=== PATIENT | male | born 1970 | race Caucasian/White ===

== ENCOUNTER → 2019-12-19 16:08 | Outpatient (CLI) | payer OTHER, SELFPAY ==
--- NOTE | 2019-12-19 16:45 | MRI_ITS ---
STUDY: MRI RIGHT ANKLE WITHOUT CONTRAST REASON FOR EXAM: Male, 49 years old. RIGHT calcaneal stress fx, RIGHT plantar fascitis, right posterior foot/heel pain x 1 year TECHNIQUE: Standardized fat and water weighted pulse sequences were obtained in all 3 orthogonal planes. COMPARISON: None. FINDINGS: Medial soft tissue swelling. MMild posterior tibialis tendinosis with peritendinitis. NNormal flexor digitorum longus tendon. NNormal flexor hallucis longus tendon. NNormal peroneus longus and brevis tendons. NNormal tibialis anterior tendon. NNormal extensor hallucis longus tendon. NNormal extensor digitorum longus tendons. Small Achilles tendon enthesophyte. Moderate thickening of the plantar fascia with mild acute edema and small plantar spur (sagittal images 9 and 10 series 9).. NNormal intrinsic muscles of the rearfoot. NNormal distal tibiofibular syndesmotic ligamentous complex. NNormal lateral ligamentous complex. NNormal subtalar ligaments and sinus tarsi. NNormal deltoid ligamentous complexes. NNormal plantar calcaneonavicular (spring) ligament. SSmall medial talar dome cyst/osteochondral lesion (coronal image 18 series 7). Tibiotalar articular cartilage preserved. NNormal subtalar articulations. NNormal talonavicular articulation. NNormal calcaneocuboid articulation. NNormal navicular-cuneiform articulations. MRI/Lower Ext Joint Only (Routine) IMPRESSION: Mild acute plantar fasciitis with small plantar spur and moderate plantar fascial thickening Mild PTT tendinosis/tenosynovitis Small Achilles tendon enthesophyte Small medial talar dome cyst/osteochondral lesion Medial soft tissue swelling Electronically Signed: Mulugeta Dhillon DO at 8:57 EST Tel , Service support ,
--- NOTE | 2019-12-19 17:30 | MRI_ITS ---
STUDY: MRI LEFT MIDFOOT/FOREFOOT REASON FOR EXAM: Male, 49 years old. LEFT foot capsulitis,LEFT DISTAL foot pain TECHNIQUE: Standardized fat and water weighted pulse sequences were obtained in all 3 orthogonal planes. COMPARISON: Correlation with left ankle MRI from the same day. FINDINGS: Please see dedicated ankle MRI. First through fifth metatarsals intact. Minimal metatarsophalangeal joint arthrosis. Visualized portions of the first through fifth digits intact. No acute fracture line. No acute dislocation. No acute bone destruction. Normal talonavicular articulation. Normal calcaneocuboid articulation. Normal navicular cuneiform articulations. Partially visualized medial talar dome osteochondral lesion (sagittal image 8 series 5). Normal muscles of the midfoot/hindfoot. No solid, cystic or lipomatous lesions. No significant muscle atrophy. Normal flexor and extensor tendons. Normal Lisfranc ligament. No significant capsular thickening or swelling. MRI/Lower Ext/No Jt/w/o IMPRESSION: Left midfoot/forefoot intact Minimal MTP joint arthrosis Medial talar dome osteochondral lesion Please see dedicated ankle MRI Electronically Signed: Mulugeta Dhillon DO at 10:11 EST Tel , Service support ,
== END ==
PROVIDERS: PCP Internal Medicine; Referring Provider Podiatrist; Visit Provider Podiatrist
DX: M72.2 Plantar fascial fibromatosis (principal); M79.671 Pain in right foot; S92.001S Unspecified fracture of right calcaneus, sequela
CPT/HCPCS: 73718; 73721

== ENCOUNTER → 2021-04-15 14:14 | Outpatient (CLI) | payer OTHER, SELFPAY ==
--- NOTE | 2021-04-15 14:17 | CT_ITS ---
STUDY: CT FACIAL BONES WITHOUT CONTRAST REASON FOR EXAM: Male, 50 years old. CHRONIC SINUSITIS NOT IMPROVING W/ABX RADIATION DOSAGE (If Supplied By Facility): CTDIvol = ( 33.06 ) mGy, DLP = ( 904.09 ) mGycm TECHNIQUE: The patient was scanned in a multi detector CT scanner. Sagittal and coronal images were reconstructed. Individualized dose optimization techniques were used for this CT. COMPARISON: None. FINDINGS: Normal soft tissue structures. Normal orbital fragoso and orbital contents. Normal nasal bones and anterior nasal spine. Normal facial bones. There is no demonstrated fracture. There is a 1.6 cm mucosal polyp or retention cyst at the base of the left maxillary sinus along its medial wall. Normal thickening along the medial posterior wall of the right maxillary sinus. CT/Sinus/Facial Bone IMPRESSION: Mild degree of mucosal thickening of the maxillary sinuses bilaterally slightly more prominent on the left side. Electronically Signed: Norm Knox MD at 14:48 EDT , Service support ,
== END ==
PROVIDERS: PCP Family Medicine; Referring Provider Family Medicine; Visit Provider Family Medicine
DX: J32.9 Chronic sinusitis, unspecified (principal)
CPT/HCPCS: 70486

== ENCOUNTER 2021-07-23 08:38 | Day surgery (SDC) | payer OTHER, SELFPAY ==
--- NOTE | 2021-07-22 12:51 | EKG12_ITS ---
Test Reason : PREOP Blood Pressure : / mmHG Vent. Rate : 061 BPM Atrial Rate : 061 BPM P-R Int : 130 ms QRS Dur : 082 ms QT Int : 396 ms P-R-T Axes : 019 006 030 degrees QTc Int : 398 ms Normal sinus rhythm Normal ECG Confirmed by LASHAUN TREADWELL, MELVA ([id number]), editor trade journal RAFAEL MONTOYA ([id number]) on 07/26/2021 12:58:29 PM Referred By: Mulugeta Blackwood Confirmed By:MELVA WILKS MD
[2021-07-22 13:05] LABS: Hematocrit 43.3 % (40-54); Hemoglobin 14.5 g/dL (13.0-16.5); Mean Corp Hgb Conc 33.5 g/dL (32-36); Mean Corpuscular Hgb 32.4 pg (27.0-32.0); Mean Corpuscular Volume 96.7 fL (80-94); Mean Platelet Vol. 9.4 fl (6.2-12.0); Platelet Count 177 K/mm3 (150-450); RBC Distribution Width CV 12.2 % (11.6-14.6); RBC Distribution Width SD 43.2 fl (35.1-43.9); Red Blood Count 4.48 M/mm3 (4.6-6.2); White Blood Count 4.8 K/mm3 (4.4-11.0)
[2021-07-22 13:26] LABS: Anion Gap 4 (5-15); BUN 12 mg/dL (7-18); BUN/Creat Ratio 13.6 RATIO (10-20); Calcium,Total 8.7 mg/dL (8.5-10.1); Chloride 105 mmol/L (98-107); Creatinine, Serum 0.88 mg/dL (0.70-1.30); EST Glomerular Filtration Rate 97 mL/min (>60); Est Glom Filt Rate - Afr Amer 117 mL/min (>60); Glucose 118 mg/dL (74-106); Potassium 4.5 mmol/L (3.5-5.1); Sodium Level 139 mmol/L (136-145)
[2021-07-23] VITALS (7 sets, daily range): BP systolic 135–147; BP diastolic 83–90; PULSE 57–72; RESP 16; TEMP 35.8–36.8; O2SAT 95–98; BMI 42.3
[2021-07-23] MEDS: Lactated Ringers 1,000 ML 100 ML IV (09:27)
--- NOTE | 2021-07-23 10:30 | NASAL_PTH ---
PATIENT: JERMAIN MILLER LOC: [facility] [place] U[place][id number] AGE/SX: 51/M ROOM: RE07/23/[address]: Dr. Mulugeta Blackwood MD : 1970 BED: DIS: 07/23/2021 SPEC #: [id number] RECD: 07/23/21 14:48 STATUS: JAUN REQ #: [id number] ORESTES: 07/23/21 10:[address]: Mulugeta Blackwood DEPT: SURGICAL PATHOLOGY RECD BY: Divya Call ENTERED: 07/26/21 09:05 SP TYPE: NASAL SPEC OTHR DR: Dr. Moe Johnson DO Tissues: A - Nasal septum, NOS B - Nasal turbinate, NOS Procedures: Decalcification bone/plaque Surgery Specimen Level III HEADER OPERATION: Septoplasty, bilateral submucous resection of inferior turbinates PRE-OP DIAGNOSIS: Inferior turbinate hypertrophy; nasal septal deviation TISSUE SUBMITTED: A ? Nasal contents, B - Turbinates MICROSCOPIC DIAGNOSIS A. Nasal contents, excision: Hyaline cartilage and bone with focal reparative and reactive change. B. Turbinates, resection: Fibrous tissue with benign respiratory glandular tissue. AM:shruthi 07/29/2021 MICROSCOPIC DESCRIPTION Slides are reviewed. GROSS DESCRIPTION A - Received in fixative is one container labeled with the patient's name and designated nasal contents. The specimen consists of multiple irregular fragments of light soni-white bone and cartilage that in aggregate measure 6 x 3 x 0.2 cm. The specimen is totally submitted in two cassettes after decalcification. B - Received in fixative is one container labeled with the patient's name and designated turbinates. The specimen consists of multiple irregular fragments of light soni soft tissue that in aggregate measure 2 x 0.7 x 0.1 cm. The specimen is totally submitted in one cassette. / AM:shruthi 07/26/21 TC:5 CPT: 01492 x2, 49347
[2021-07-23] MEDS: Oxymetazoline 0.05% 1 SPRAY SPRAY.BTL 15 SPRAY (11:14)
[2021-07-23] MEDS: Lidocaine 1% /Epi 1:100 (20ml) 20 ML Vial (11:14)
[2021-07-23] MEDS: Lidocaine 4% 50 ML Bottle (11:14)
[2021-07-23] MEDS: Bacitracin 500 UNITS/GM PACKET (11:46)
--- NOTE | 2021-07-23 12:02 | PCM.OPRPT ---
Problems Associated Problem List Diagnoses (1) Nasal septal deviation: (2) Hypertrophy of both inferior nasal turbinates: Report of Operation Date of Procedure: 07/23/21 Pre-Operative Diagnosis: Deviated nasal septum, hypertrophy of the inferior nasal turbinates Post-Operative Diagnosis: Same Surgery/Procedure Performed:: Septoplasty, submucous resection of the inferior nasal turbinates Description of Surgical Findings:: Bob is a 51-year-old male complains of chronic nasal obstruction failing appropriate medical therapy. Examination showed deviation nasal septum and hypertrophy of inferior nasal turbinates and surgical treatment was offered in hopes of alleviation of his nasal obstruction complaints. The risks, alternatives, potential complications, and benefits were discussed at length and any questions answered to the patient and/or caregiver's satisfaction. Witnessed informed consent was obtained in the office, and the patient and/or caregiver was agreeable to proceed. Procedure went as follows: The patient was identified in the preoperative holding and brought to the operating room, was placed under general anesthesia and intubated. When appropriate anesthesia was obtained, pledgets soaked in a 50-50 mixture of oxymetazoline and 4% topical lidocaine were placed to decongest the nasal mucosa. The nasal septum was then injected beginning on the left side with 1% lidocaine with 100,000 epinephrine for a total of 5 mL. The pledgets were then removed and the left nasal cavity examined. There was noted to be significant nasal septal deviation to the left. Using a 15 blade scalpel, a hemitransfixion incision was then made on the left side and using the Elizabet elevator a subperichondrial/periosteal flap was elevated. The septum was then transected at the bony cartilaginous junction and a similar flap raised on the contralateral side. Using a Ho-Collado forceps, the septum was then sharply transected superiorly and the deviated portions removed with a Anna forceps. Any inferior bony spur was then removed with a chisel allowing for midline placement of the nasal septum. The hemitransfixion incision was then closed with interrupted 4-0 chromic gut suture followed by a 4-0 plain quilting suture to reapproximate the mucosal flaps. Attention was then turned to the inferior nasal turbinates. Beginning on the left side, the anterior aspect of the inferior turbinate was then injected with 1% lidocaine with 100,000 epinephrine for a total of 2.5 mL bilaterally. Again beginning on the left side a 15 blade scalpel was used to create a stab incision in the anterior aspect of the turbinate. A caudal elevator was then used to elevate a submucosal plane. Using the microdebrider, the anterior bony and intervening submucosal tissue was then removed resulting in reduction of the inferior turbinate. Similar procedure was then completed on the contralateral side. Oscar splints were then applied after coating with bacitracin ointment and secured to the columella with a single 3-0 Prolene suture. The patient was then returned to anesthesia, was revived and extubated having tolerated the procedure well without complications. Surgeon: Mulugeta Blackwood Type of Anesthesia: General Anesthesiologist: anh Specimen's removed: nasal septal contents, turbinate contents Drains: none Estimated Blood Loss (mL): 50 mL Fluids Replaced: 500 mL Grafts/Implants Used: Oscar splints Complications none Admit VTE Documentation VTE Present on Admission: No VTE Mechan Device Prophylaxis: SCD's VTE Pharm Prophylaxis ordered?: No
--- NOTE | 2021-07-23 12:06 | PCM.DC ---
Discharge Instructions Diet Discharge Diet: No restrictions Activity Discharge Activity: Return to Normal Activity Dressing / Incision Call your doctor if your incision/area has: Sudden Increased Bleeding and Increased Pain/ Swelling Call your doctor if you observe: Fever of 101 or Higher and Uncontrolled pain Follow Up Care Please Follow Up With: Mulugeta Blackwood MD When: 1 week Test Results: Test results from this visit will be discussed in further detail at your follow-up appointment, if applicable. Discharge Plan Admission Primary Reason for Your Visit: deviated nasal septum turbinate hypertrophy Attending Provider: Mulugeta Blackwood Primary Care Provider: Moe Johnson Discharge Orders/Prescriptions Prescriptions: New hydrocodone-acetaminophen 5-325 mg Tablet 1 tab PO Q6H PRN PRN (Reason: Pain Score 6-10) 5 Days Qty: 10 RF: 0 acetaminophen 500 mg Tablet 500 mg PO Q4H PRN PRN (Reason: Pain Score 1-5/10) Qty: 0 RF: 0 Continued losartan 25 mg Tablet 12.5 mg PO QHS RF: 0 ibuprofen [Motrin IB] 200 mg Tablet 200 mg PO Q6H PRN (Reason: Pain) RF: 0 Immune Support 250-12.5 mg Tablet,Chewable 1 tab PO DAILY RF: 0 diclofenac potassium 50 mg OTHER DAILY RF: 0 Referrals / Follow Up: Moe Johnson DO [Primary Care Provider] - Disposition Disposition (needs filled in before D/C Order can be placed): Home, Self Care
== END 2021-07-23 13:28 | disposition home or self-care (01) ==
LOC: SDC 08:42 → AC 08:44
PROVIDERS: Anesthesiology; PCP Family Medicine; Referring Provider Otolaryngology; Visit Provider Otolaryngology
PROC: (CPT 30520; principal; 2021-07-23 10:15)
DX: J34.2 Deviated nasal septum (principal); J34.3 Hypertrophy of nasal turbinates; G47.30 Sleep apnea, unspecified; K21.9 Gastro-esophageal reflux disease without esophagitis; I10 Essential (primary) hypertension
CPT/HCPCS: 00160; 30140; 30520; 36415; 80048; 85027; 87426; 88304; 88311; 93005; C9803; J7120; J2405

== ENCOUNTER 2022-02-10 09:05 | Outpatient (CLI) | payer OTHER, SELFPAY ==
[2022-02-10 09:28] LABS: Absolute Lymphocyte Count 1.83 X10^3/uL (0.83-4.51); Basophil# 0.02 X10^3/uL; Basophil% 0.4 % (0-1); Eosinophil# 0.09 X10^3/uL; Eosinophils% 1.6 % (0-5); Hematocrit 45.4 % (40-54); Hemoglobin 15.9 g/dL (13.0-16.5); Lymphocyte # 1.83 X10^3/ul (0.83-4.51); Lymphocyte % 33.5 % (19-41); Mean Corpuscular Hgb 32.4 pg (27.0-32.0); Mean Corpuscular Volume 92.5 fL (80-94); Mean Platelet Vol. 9.4 fl (6.2-12.0); Monocyte# 0.49 X10^3/uL; NRBC Flagged by Analyzer 0 % (0-5); Neutrophil # 3.02 X10^3/uL (2.7-7.7); Neutrophil % 55.3 % (47-70); Platelet Count 170 K/mm3 (150-450); RBC Distribution Width CV 12.5 % (11.6-14.6); RBC Distribution Width SD 42.6 fl (35.1-43.9); Red Blood Count 4.91 M/mm3 (4.6-6.2); White Blood Count 5.5 K/mm3 (4.4-11.0)
[2022-02-10 10:06] LABS: ALB/GLOB Ratio 0.9 RATIO (0.9-2.4); AST(SGOT) 24 U/L (15-37); Alanine Aminotransfer ALT/SGPT 45 U/L (16-61); Albumin, Serum 3.7 g/dL (3.2-5.0); Alkaline Phosphatase 64 U/L (45-117); Anion Gap 5 (5-15); BUN 16 mg/dL (7-18); BUN/Creat Ratio 18.2 RATIO (10-20); Calcium,Total 8.8 mg/dL (8.5-10.1); Chloride 105 mmol/L (98-107); Cholesterol 159 mg/dL (200); Creatinine, Serum 0.88 mg/dL (0.70-1.30); EST Glomerular Filtration Rate 98 mL/min (>60); Est Glom Filt Rate - Afr Amer 118 mL/min (>60); Glucose 113 mg/dL (74-106); High Density Lipoprotein 32 mg/dL; PSA,Total - Annual Screen 1.31 ng/mL (0.00-4.00); Potassium 4.4 mmol/L (3.5-5.1); Protein, Total 7.7 g/dL (6.4-8.2); Sodium Level 139 mmol/L (136-145); Thyroid Stim Hormone (TSH) 1.17 uIU/mL (0.358-3.74); Triglycerides 134 mg/dL; Very Low Density Lipoprotein 27 mg/dL (5-40)
[2022-02-10 14:28] LABS: Hemoglobin A1c 5.3 % (3.8-5.6)
== END 2022-02-10 23:59 | disposition home or self-care (01) ==
PROVIDERS: PCP Family Medicine; Referring Provider Family Medicine; Visit Provider Family Medicine
DX: Z00.00 Encounter for general adult medical examination without abnormal findings (principal); R73.01 Impaired fasting glucose; Z12.5 Encounter for screening for malignant neoplasm of prostate; R25.2 Cramp and spasm
CPT/HCPCS: 36415; 80053; 80061; 83036; 83735; 84153; 84443; 85025; G0103

== ENCOUNTER → 2022-03-04 | Outpatient (CLI) | payer OTHER, SELFPAY ==
--- NOTE | 2022-03-04 13:01 | STEWCON_ITS ---
Reason For Study: CHEST PAIN Stress Results Protocol: Sourav Protocol WITH DEFINITY Maximum Predicted HR: 170 bpm Target HR: 145 bpm % Maximum Predicted HR: 95 % DurationHeart Rate Stage (mm:ss) (bpm) BP Comment BASELINE 65 118/76 STAGE 1 3:00 99 142/80 STAGE 2 3:00 115 154/72 STAGE 3 3:00 151 180/72 STAGE 4 0:50 162 / RECOVERY 96 120/804 CC DEFINITY Stress Duration: 9:50 mm:ss Maximum Stress HR: 162 bpm METS: 11 Baseline Echocardiogram Findings Stress Echo Wall motion Data Resting WM Intermediate WM Stress WM Resting Wall Motion Wall Motion Stress All segments Normal. All segments Hyperkinetic. Ejection Fraction 60 %. Ejection Fraction 75 %. Stress Results Heart rate response: Adequate (percent predicted maximal heart rate greater than 85%) Blood pressure response: Normal resting blood pressure-appropriate response Cardiac rhythm: Occasional PVC in recovery Functional capacity: Good Stopped secondary to: Dyspnea. EKG Data Baseline ECG: Normal sinus rhythm. Peak exercise ECG: No obvious ECG change. Symptoms with Stress No report of chest discomfort during exercise or recovery. ECHO/Stress Test Echo W/Contrast Interpretation Summary Contrast injection performed Negative (adequate) stress echocardiogram Ordering Physician: Moe Johnson Referring Physician: Moe Johnson Performed By: Jenaro Cruz RCS
== END | disposition home or self-care (01) ==
LOC: CVS 13:00
PROVIDERS: PCP Family Medicine; Referring Provider Family Medicine; Visit Provider Family Medicine
DX: R07.9 Chest pain, unspecified (principal)
CPT/HCPCS: 93017; 93350; Q9957; A4216; C8928

== ENCOUNTER 2022-05-27 07:59 | Day surgery (SDC) | payer OTHER, SELFPAY ==
[2022-05-27 08:23] VITALS: BP 129/82; PULSE 64; RESP 16; TEMP 36.6; O2SAT 98; BMI 39.6
[2022-05-27] MEDS: Lactated Ringers 1,000 ML 30 ML IV (08:38)
--- NOTE | 2022-05-27 08:38 | PCM.HP.STD ---
HPI - General General Date of Service: 05/27/22 Chief Complaint: Screening for intestinal cancer HPI Narrative JERMAIN MILLER, is a 52 M who presents via open access today for screening colonoscopy. He has not had a previous one. He denies any acute health problems. No abdominal pain. No bright red blood per rectum or melena. [facility] Medical History (Updated 05/24/22 @ 13:43 by Katherine Ibarra) Alcohol use CPAP (continuous positive airway pressure) dependence Gastric reflux History of stress test Hypertension Leg cramps Migraine headache Non-smoker Sleep apnea Home Medications ibuprofen 200 mg tablet (Motrin IB) 200 mg PO Q6H PRN Pain 07/20/21 [History Last Taken Unknown] mv-min-vit C 250 cd-opzmoi-pdwny HCl-herb 124 12.5 mg chewable tablet (Immune Support) 1 tab PO DAILY supplement 07/20/21 [History Last Taken Unknown] acetaminophen 500 mg tablet 500 mg PO Q4H PRN PRN Pain Score 1-5/10 #0 tabs 07/23/21 [Rx Last Taken Unknown] losartan 25 mg tablet 50 mg PO DAILY BP 04/01/22 [History Last Taken Unknown] Allergy/AdvReac Type Severity Reaction Status Date / Time No Known Allergies Allergy Verified 05/27/22 08:22 Family History (Updated 04/01/22 @ 12:50 by Maryjane Cruz) Unknown Hypertension Arthritis Surgical History (Updated 04/01/22 @ 12:49 by Maryjane Cruz) History of cholecystectomy History of surgical removal of pilonidal cyst Hx of nasal septoplasty Social History (Updated 04/01/22 @ 12:52 by Maryjane Cruz) current occupational status: employed current occupation: [employer] Smoking Status: Never smoker ROS Constitutional Constitutional: Reports systems reviewed and no addt'l complaints, except as documented Cardiovascular Cardiovascular: Denies chest pain Respiratory/Chest Respiratory/Chest: Denies shortness of breath at rest Gastrointestinal Gastrointestinal: Denies abdominal pain, change in bowel habits, hematochezia or melena Vital Signs Vital Signs Vital Signs: 05/27/22 08:23 05/27/22 08:23 Temperature 97.9 F Temperature Source Temporal Pulse Rate 64 Respiratory Rate 16 Respiratory Pattern Normal Blood Pressure 129/82 H Blood Pressure Mean 97 Blood Pressure Source Monitor Blood Pressure Position Sitting Blood Pressure Location Left Arm Pulse Ox 98 Oxygen Delivery Method Room Air Weight Weight: 284 lb 6.341 oz Body Mass Index (BMI) 39.6 Physical Exam Const alert, oriented x3 and no apparent distress General Appearance: cooperative and comfortable Eyes General Eye: normal appearance of both eyes Neck General: normal visual inspection Chest inspection of chest normal Resp Effort and Inspection: able to speak in complete sentences and symmetric chest movement Auscultation: clear to auscultation bilaterally Cardio regular rate and regular rhythm GI soft to palpation, non-tender and non-distended Extremity no calf tenderness Neuro oriented x3 Psych thought process normal Assessment & Plan Assessment/Plan (1) Encounter for screening for malignant neoplasm of colon: PLAN: The patient presents via open access today for screening colonoscopy with possible biopsy or polypectomy as indicated. He is aware of the technique, benefit, risk, alternatives. He has had an opportunity to ask and have questions answered. Other than his mother having had colon polyps he does not have any risk history. Horacio Mata M.D., F.A.C.S.
[2022-05-27 09:30] VITALS: BP 105/61; BP 129/82; PULSE 56; RESP 16; TEMP 36.2; O2SAT 98
--- NOTE | 2022-05-27 09:30 | OP.COLON_ITS ---
Patient Name: Larry Huffman Procedure Date: 05/27/2022 9:15 AM Date of : 1970 Age: 52 Procedure: Colonoscopy Indications: Screening for colorectal malignant neoplasm Providers: Horacio Mata MD Medicines: See the Anesthesia note for documentation of the administered medications Patient Profile: Last Colonoscopy: none. The patient's first colonoscopy is today. Complications: No immediate complications. Procedure: Pre-Anesthesia Assessment: - Prior to the procedure, a History and Physical was performed, and patient medications and allergies were reviewed. The patient's tolerance of previous anesthesia was also reviewed. The risks and benefits of the procedure and the sedation options and risks were discussed with the patient. All questions were answered, and informed consent was obtained. Prior Anticoagulants: The patient has taken no previous anticoagulant or antiplatelet agents. ASA Grade Assessment: II - A patient with mild systemic disease. After reviewing the risks and benefits, the patient was deemed in satisfactory condition to undergo the procedure. After I obtained informed consent, the scope was passed under direct vision. Throughout the procedure, the patient's blood pressure, pulse, and oxygen saturations were monitored continuously. The colonoscope was introduced through the anus and advanced to the cecum, identified by appendiceal orifice and ileocecal valve. The colonoscopy was performed without difficulty. The patient tolerated the procedure well. The quality of the bowel preparation was good. The ileocecal valve and the appendiceal orifice were photographed. Scope In: 9:15:57 AM Scope Withdrawal Time 0 hours 7 minutes 52 seconds Scope Out: 9:26:54 AM Total Procedure Duration Time 0 hours 10 minutes 57 seconds Findings: The digital rectal exam findings include non-thrombosed external hemorrhoids, non-thrombosed internal hemorrhoids and internal hemorrhoids that prolapse with straining, but spontaneously regress to the resting position (Grade II). Pertinent negatives include normal prostate (size, shape, and consistency). The colon (entire examined portion) appeared normal. Impression: - Non-thrombosed external hemorrhoids, non-thrombosed internal hemorrhoids and internal hemorrhoids that prolapse with straining, but spontaneously regress to the resting position (Grade II) found on digital rectal exam. - The entire examined colon is normal. - No specimens collected. Recommendation: - Discharge patient to home. - Resume previous diet. - Continue present medications. - Repeat colonoscopy in 10 years for screening purposes. Procedure Code(s): --- Professional --- 94532, Colonoscopy, flexible; diagnostic, including collection of specimen(s) by brushing or washing, when performed (separate procedure) Diagnosis Code(s): --- Professional --- Z12.11, Encounter for screening for malignant neoplasm of colon K64.1, Second degree hemorrhoids K64.4, Residual hemorrhoidal skin tags CPT copyright 2017 [employer]. All rights reserved. The codes documented in this report are preliminary and upon carpentry instructor review may be revised to meet current compliance requirements. Horacio Mata MD 05/27/2022 9:30:44 AM This report has been signed electronically. Number of Addenda: 0 Note Initiated On: 05/27/2022 9:15 AM
--- NOTE | 2022-05-27 09:31 | OP.CCLET_ITS ---
05/27/2022 Moe Johnson [address] [place] [address] Re : Colonoscopy procedure for Larry Armida Dear Dr. Johnson This procedure was performed on Friday, May 27, 2022. My impressions and recommendations are as follows: Impressions : - Non-thrombosed external hemorrhoids, non-thrombosed internal hemorrhoids and internal hemorrhoids that prolapse with straining, but spontaneously regress to the resting position (Grade II) found on digital rectal exam. - The entire examined colon is normal. - No specimens collected. Recommendations : - Discharge patient to home. - Resume previous diet. - Continue present medications. - Repeat colonoscopy in 10 years for screening purposes. My findings are described in the full procedure note, which is enclosed. If I can be of further assistance, please feel free to contact me at Doctor phone number(s): Work: . Sincerely, Horacio Mata MD 05/27/2022 9:30:44 AM This report has been signed electronically.
[2022-05-27 09:35] VITALS: BP 100/36; BP 129/82; PULSE 53; RESP 16; O2SAT 87
[2022-05-27 09:40] VITALS: BP 106/46; BP 129/82; PULSE 54; RESP 16; O2SAT 99
[2022-05-27 09:45] VITALS: BP 103/59; BP 129/82; PULSE 52; RESP 16; TEMP 36.3; O2SAT 98
[2022-05-27 09:55] VITALS: BP 129/82
== END 2022-05-27 09:57 | disposition home or self-care (01) ==
LOC: EN 08:04 → AC 08:05
PROVIDERS: PCP Family Medicine; Referring Provider Family Medicine; Visit Provider Surgery
PROC: 0DJD8ZZ Inspection of Lower Intestinal Tract, Via Natural or Artificial Opening Endoscopic (ICD-10-PCS; CPT 45378; principal; 2022-05-27 08:55)
DX: Z12.11 Encounter for screening for malignant neoplasm of colon (principal); I10 Essential (primary) hypertension; K64.4 Residual hemorrhoidal skin tags; K64.1 Second degree hemorrhoids; G47.30 Sleep apnea, unspecified; Z99.89 Dependence on other enabling machines and devices; K21.9 Gastro-esophageal reflux disease without esophagitis
CPT/HCPCS: 45378; J7120; J2405

== ENCOUNTER → 2023-02-23 | Outpatient (CLI) | payer OTHER, SELFPAY ==
[2023-02-23 09:24] LABS: Absolute Lymphocyte Count 1.75 X10^3/uL (0.83-4.51); Absolute Neutrophil Count 2.4 X10^3/uL (2.0-7.7); Basophil# 0.02 X10^3/uL; Basophil% 0.4 % (0-1); Eosinophil# 0.11 X10^3/uL; Eosinophils% 2.4 % (0-5); Hematocrit 46.6 % (40-54); Hemoglobin 15.8 g/dL (13.0-16.5); Lymphocyte # 1.75 X10^3/ul (0.83-4.51); Lymphocyte % 37.6 % (19-41); Mean Corp Hgb Conc 33.9 g/dL (32-36); Mean Corpuscular Volume 97.3 fL (80-94); Mean Platelet Vol. 9.6 fl (6.2-12.0); Monocyte# 0.33 X10^3/uL; Monocyte% 7.1 % (0-10); NRBC Flagged by Analyzer 0 % (0-5); Neutrophil # 2.43 X10^3/uL (2.7-7.7); Neutrophil % 52.3 % (47-70); Platelet Count 190 K/mm3 (150-450); RBC Distribution Width CV 12.4 % (11.6-14.6); RBC Distribution Width SD 44.7 fl (35.1-43.9); Red Blood Count 4.79 M/mm3 (4.6-6.2); White Blood Count 4.7 K/mm3 (4.4-11.0)
[2023-02-23 09:54] LABS: Hemoglobin A1c 5.4 % (3.8-5.6)
[2023-02-23 10:03] LABS: ALB/GLOB Ratio 1.1 RATIO (0.9-2.4); AST(SGOT) 28 U/L (15-37); Alanine Aminotransfer ALT/SGPT 42 U/L (16-61); Albumin, Serum 3.8 g/dL (3.2-5.0); Alkaline Phosphatase 58 U/L (45-117); Anion Gap 2 (5-15); BUN 15 mg/dL (7-18); BUN/Creat Ratio 19.2 RATIO (10-20); Calcium,Total 8.7 mg/dL (8.5-10.1); Chloride 106 mmol/L (98-107); Cholesterol 165 mg/dL (200); Creatinine, Serum 0.78 mg/dL (0.70-1.30); EST Glomerular Filtration Rate 111 mL/min (>60); Est Glom Filt Rate - Afr Amer 134 mL/min (>60); Globulin 3.6 g/dL (2.2-4.2); Glucose 108 mg/dL (74-106); High Density Lipoprotein 32 mg/dL; PSA,Total - Annual Screen 1.55 ng/mL (0.00-4.00); Potassium 4.3 mmol/L (3.5-5.1); Protein, Total 7.4 g/dL (6.4-8.2); Sodium Level 136 mmol/L (136-145); Triglycerides 123 mg/dL; Very Low Density Lipoprotein 25 mg/dL (5-40)
== END | disposition home or self-care (01) ==
LOC: LAB 08:42
PROVIDERS: PCP Family Medicine; Referring Provider Family Medicine; Visit Provider Family Medicine
DX: Z00.00 Encounter for general adult medical examination without abnormal findings (principal); R73.01 Impaired fasting glucose
CPT/HCPCS: 36415; 80053; 80061; 83036; 84153; 85025; G0103

== ENCOUNTER → 2024-03-08 | Outpatient (CLI) | payer OTHER, SELFPAY ==
[2024-03-08 08:02] LABS: Absolute Neutrophil Count 1.9 X10^3/uL (2.0-7.7); Basophil# 0.01 X10^3/uL; Basophil% 0.2 % (0-1); Eosinophil# 0.09 X10^3/uL; Eosinophils% 2.2 % (0-5); Hematocrit 44.8 % (40-54); Hemoglobin 15.4 g/dL (13.0-16.5); Lymphocyte % 42.1 % (19-41); Mean Corp Hgb Conc 34.4 g/dL (32-36); Mean Corpuscular Hgb 32.3 pg (27.0-32.0); Mean Corpuscular Volume 93.9 fL (80-94); Mean Platelet Vol. 9.4 fl (6.2-12.0); Monocyte# 0.36 X10^3/uL; Monocyte% 8.9 % (0-10); NRBC Flagged by Analyzer 0 % (0-5); Neutrophil # 1.87 X10^3/uL (2.7-7.7); Neutrophil % 46.4 % (47-70); Platelet Count 181 K/mm3 (150-450); RBC Distribution Width CV 12.5 % (11.6-14.6); RBC Distribution Width SD 43.4 fl (35.1-43.9); Red Blood Count 4.77 M/mm3 (4.6-6.2)
[2024-03-08 08:20] LABS: Hemoglobin A1c 5.1 % (3.8-5.6)
[2024-03-08 08:30] LABS: AST(SGOT) 22 U/L (15-37); Alanine Aminotransfer ALT/SGPT 32 U/L (16-61); Albumin, Serum 3.8 g/dL (3.2-5.0); Alkaline Phosphatase 58 U/L (45-117); Anion Gap 4 (5-15); BUN 16 mg/dL (7-18); BUN/Creat Ratio 18.4 RATIO (10-20); Calcium,Total 9.3 mg/dL (8.5-10.1); Chloride 105 mmol/L (98-107); Cholesterol 170 mg/dL (200); Creatinine, Serum 0.87 mg/dL (0.70-1.30); EST Glomerular Filtration Rate 98 mL/min (>60); Est Glom Filt Rate - Afr Amer 118 mL/min (>60); Glucose 99 mg/dL (74-106); High Density Lipoprotein 31 mg/dL; PSA,Total - Annual Screen 0.95 ng/mL (0.00-4.00); Potassium 4.5 mmol/L (3.5-5.1); Protein, Total 7.8 g/dL (6.4-8.2); Sodium Level 137 mmol/L (136-145); Triglycerides 100 mg/dL; Very Low Density Lipoprotein 20 mg/dL (5-40)
== END | disposition home or self-care (01) ==
LOC: LAB 07:21
PROVIDERS: PCP Family Medicine; Referring Provider Family Medicine; Visit Provider Family Medicine
DX: Z00.00 Encounter for general adult medical examination without abnormal findings (principal); Z12.5 Encounter for screening for malignant neoplasm of prostate
CPT/HCPCS: 36415; 80053; 80061; 83036; 84153; 85025; G0103

== ENCOUNTER → 2025-04-11 | Outpatient (CLI) | payer OTHER, SELFPAY ==
--- NOTE | 2025-04-11 10:27 | RAD_ITS ---
PROCEDURE: CHEST PA AND LATERAL 04/11/2025 REASON FOR EXAM: SENSATION L UPPER CHEST, PERSISTENT TECHNIQUE: Frontal and lateral views of the chest. COMPARISON: None RAD/Chest PA and Lateral IMPRESSION: No focal consolidation. Bibasilar subsegmental atelectasis. No pleural effusi on or pneumothorax. Cardiac silhouette is minimally enlarged. No acute fractures. Reading Location: [id number]
[2025-04-11 12:58] LABS: D-Dimer Quantitative (DVT/PE) < 0.27 FEU/ug/m (0.27-0.49)
[2025-04-11 13:02] LABS: Absolute Lymphocyte Count 1.74 X10^3/uL (0.83-4.51); Absolute Neutrophil Count 2.9 X10^3/uL (2.0-7.7); Basophil# 0.02 X10^3/uL; Basophil% 0.4 % (0-1); Eosinophil# 0.06 X10^3/uL; Eosinophils% 1.2 % (0-5); Hematocrit 46.8 % (40-54); Hemoglobin 16.1 g/dL (13.0-16.5); Lymphocyte # 1.74 X10^3/ul (0.83-4.51); Mean Corp Hgb Conc 34.4 g/dL (32-36); Mean Corpuscular Hgb 32.7 pg (27.0-32.0); Mean Corpuscular Volume 94.9 fL (80-94); Mean Platelet Vol. 9.9 fl (6.2-12.0); Monocyte# 0.43 X10^3/uL; Monocyte% 8.4 % (0-10); NRBC Flagged by Analyzer 0 % (0-5); Neutrophil # 2.85 X10^3/uL (2.7-7.7); Neutrophil % 55.6 % (47-70); Platelet Count 199 K/mm3 (150-450); RBC Distribution Width CV 12.2 % (11.6-14.6); RBC Distribution Width SD 42.5 fl (35.1-43.9); Red Blood Count 4.93 M/mm3 (4.6-6.2); White Blood Count 5.1 K/mm3 (4.4-11.0)
[2025-04-11 13:59] LABS: ALB/GLOB Ratio 1.3 RATIO (0.9-2.4); AST(SGOT) 25 U/L (<=37); Alanine Aminotransfer ALT/SGPT 25 U/L (<=46); Albumin, Serum 4.3 g/dL (3.5-5.0); Alkaline Phosphatase 58 U/L (40-129); Anion Gap 11 (5-15); BUN 14 mg/dL (4-19); BUN/Creat Ratio 16.4 RATIO (10-20); Calcium,Total 9.2 mg/dL (7.6-11.0); Carbon Dioxide 23.3 mmol/L (21.0-32.0); Chloride 102 mmol/L (98-108); Cholesterol 177 mg/dL (<=200); Creatinine, Serum 0.84 mg/dL (0.70-1.20); EST Glomerular Filtration Rate 104 (>60); Globulin 3.2 g/dL (2.2-4.2); Glucose 98 mg/dL (70-99); High Density Lipoprotein 28 mg/dL; Low Density Lipoprotein Calc. 122 mg/dL; PSA,Total - Annual Screen 1.34 ng/mL (0.02-4.00); Potassium 5.1 mmol/L (3.3-5.1); Protein, Total 7.5 g/dL (5.9-8.4); Sodium Level 136 mmol/L (133-145); Total Bilirubin 1.31 mg/dL (0.00-1.30); Triglycerides 133 mg/dL; Uric Acid 6.8 mg/dL (3.5-7.2); Very Low Density Lipoprotein 27 mg/dL (5-40); cholesterol:hdl ratio screen 6.23
== END | disposition home or self-care (01) ==
LOC: MTLAB 10:24
PROVIDERS: PCP Family Medicine; Referring Provider Family Medicine; Visit Provider Family Medicine
DX: Z00.00 Encounter for general adult medical examination without abnormal findings (principal); R07.89 Other chest pain; Z12.5 Encounter for screening for malignant neoplasm of prostate; M10.9 Gout, unspecified
CPT/HCPCS: 36415; 71046; 80053; 80061; 84153; 84550; 85025; 85379; G0103